=== PATIENT | male | born 1960 | race Caucasian/White ===

== ENCOUNTER 2017-10-02 14:15 | Emergency (ER) | payer OTHER ==
[~2017-10-02] VITALS: Ht 180.3 cm; Wt 80.3 kg
[2017-10-02] MEDS ORDERED: SODIUM CHLORIDE 0.9% 1000ML 1,000 ML IV STA (15:09)
[2017-10-02] MEDS ORDERED: ONDANSETRON HCL INJ 2 MG/ML VIAL IV STA (15:09)
[2017-10-02] MEDS ORDERED: IBUPROFEN 400 MG TAB PO ONE (15:15)
[2017-10-02 15:25] LABS: BASOPHILS % 0.6 % (0.0-1.0); HEMATOCRIT 44.1 % (38.2-49.6); HEMOGLOBIN 15.8 g/dL (14.0-18.0); LYMPHOCYTES # (AUTO) 1.1 (1.0-3.2); LYMPHOCYTES % 21.4 % (18.0-39.1); MEAN CORPUSCULAR HEMOGLOBIN 30.9 pg (28-32); MEAN CORPUSCULAR HGB CONC 35.8 g/dL (31-35); MEAN CORPUSCULAR VOLUME 86.1 fL (81-99); MONOCYTES # (AUTO) 0.3 (0.2-0.8); MONOCYTES % 6.4 % (4.4-11.3); NEUTROPHILS # (AUTO) 3.7 (2.1-6.9); NEUTROPHILS % 71.2 % (38.7-80.0); PLATELET COUNT 127 x10e3/uL (140-360); RED BLOOD COUNT 5.12 x10e6/uL (4.3-5.7); RED CELL DISTRIBUTION WIDTH 11.3 % (11.7-14.4)
[2017-10-02 15:43] LABS: ALBUMIN 3.9 g/dL (3.5-5.0); ALBUMIN/GLOBULIN RATIO 1.1 (0.8-2.0); ANION GAP 15.6 mmol/L (8-16); CALCIUM 8.7 mg/dL (8.4-10.2); CREATININE, SERUM 1.26 mg/dL (0.72-1.25); POTASSIUM 3.6 mmol/L (3.5-5.1)
[2017-10-02 15:51] LABS: CREATINE KINASE MB 0.9 ng/mL (0.00-5.00); TROPONIN I 0.02 ng/mL (0-0.300)
--- NOTE | 2017-10-02 16:05 | Diagnostic Imaging Report ---
PROCEDURE: X-RAY CHEST, TWO VIEWS COMPARISON: None. INDICATIONS: CHICKEN POX FINDINGS: LUNGS: No mass, consolidations or edema. The pulmonary interstitium is normal. PLEURA: No effusions or pneumothorax. HEART \T\ MEDIASTINUM: Normal size and morphology. No hilar lymphadenopathy. BONES \T\ SOFT TISSUES: No focal osseous lesions. CONCLUSION: No acute cardiopulmonary process. Dictated by: Olena Sibley M.D. on 10/02/2017 at 16:12 Electronically approved by: Olena Sibley M.D. on 10/02/2017 at 16:12
[2017-10-02 17:21] LABS: LYMPHOCYTES % (MANUAL) 10 % (19-48); METAMYELOCYTES % (MANUAL) 3 % (0-0); MONOCYTES % (MANUAL) 7 % (3.4-9.0); NEUTROPHILS % (MANUAL) 72 % (40-74); PLATELET ESTIMATE SLIGHTLY DECREASED; PLATELET MORPHOLOGY COMMENT FEW GIANT; RBC MORPHOLOGY COMMENT NORMAL
[2017-10-02] MEDS ORDERED: ACYCLOVIR SODIUM 800 MG in SODIUM CHLORIDE 0.9% 250ML 250 ML IV SCH (18:30)
== END 2017-10-02 18:40 | disposition home or self-care (01) ==
LOC: ER 14:15
DX: R50.9 Fever, unspecified (principal); B01.9 Varicella without complication
CPT/HCPCS: 36415; 71020; 80053; 82550; 82553; 83690; 84484; 85025; 93005; 99284; J2405; J7030; J7050

== ENCOUNTER → 2022-07-31 | Outpatient (CLI) | payer BC | LOC: RAD 11:05 | PROVIDERS: ATTEND Surgery Vascular Surgery | DX: I87.8 Other specified disorders of veins (principal) | CPT/HCPCS: 93970 ==